=== PATIENT | female | born 1995 | race Caucasian/White ===

== ENCOUNTER 2017-03-13 09:18 | Emergency (ER) | payer BC, OTHER ==
[~2017-03-13] VITALS: Ht 168.9 cm; Wt 74.0 kg
[~2017-03-13 09:18] MED LIST: BCPILLS PO; LEVO137T3 PO; LEVO25TA5 PO
[2017-03-13 09:25] VITALS: Ht 168.9 cm; Wt 74.0 kg
[2017-03-13] MEDS ORDERED: ACETAMINOPHEN 500 MG TAB PO ONE (09:30)
[2017-03-13] MEDS ORDERED: SYN150 PO (09:37)
[2017-03-13] MEDS ORDERED: SERT50TA PO (09:37)
[2017-03-13 10:28] VITALS: TEMP 37.4
--- NOTE | 2017-03-13 10:30 | EMERGENCY ROOM VISIT NOTE ---
History Report prepared by Johnibmela: Sheryl Kinney Under the Supervision of: Dr. Ray Larose M.D. First contact with patient: 10:18 Chief Complaint: ILLNESS Stated Complaint: BACK PAIN,NIGHT SWEATS,JOINT PAIN,COLD SYMPTOMS History of Present Illness The patient is a 21 year old female who presents to the Emergency Room with complaints of cough and congestion beginning a week ago. The patient notes a fever, back pain, sore throat, frequent urinating, night sweats, body aches, and joint pain. The patient took ibuprofen with minimal relief. She denies any nausea, vomiting, abdominal pain, or chills. The patient had Grave's disease and has a history for a thyroidectomy. Her last menstrual cycle was a month ago. Source of History: patient Onset: week ago Modifying Factors (Relieving): tylenol Associated Symptoms: + fevers, + sorethroat, + cough, + back pain, + urinary symptoms, No nausea, No vomiting, No abdominal pain Review of Systems See HPI for pertinent positives and negatives. A total of ten systems were reviewed and were otherwise negative. Past Medical & Surgical Medical Problems: (1) Graves disease Surgical Problems: (1) History of total thyroidectomy Family History no pertinent family history stated. Social History Smoking Status: Never Smoker Housing Status: lives with roommate Occupation Status: [employer] student Current/Historical Medications Scheduled Control Pills ( Control Pills), 1 TAB PO DAILY Levothyroxine Sodium (Synthroid), 150 MCG PO QAM Sertraline (Zoloft), 50 MG PO DAILY Allergies Coded Allergies: No Known Allergies (Unverified , 03/13/17) Physical Exam Vital Signs Date Time Temp Pulse Resp B/P (MAP) Pulse Ox O2 Delivery O2 Flow Rate FiO2 03/13/17 13:40 76 16 137/70 99 03/13/17 13:27 76 16 137/70 99 Room Air 03/13/17 11:27 69 16 119/71 98 Room Air 03/13/17 10:28 37.4 03/13/17 09:25 38.8 120 17 141/87 98 Room Air Physical Exam GENERAL: Awake, alert, uncomfortable-appearing, in no acute distress HENT: Normocephalic, atraumatic. Dry MM. Mild injection, no edema to posterior pharynx. No tongue elevation or trismus. EYES: Normal conjunctiva. Sclera non-icteric. NECK: Supple. No nuchal rigidity. FROM. No JVD. RESPIRATORY: Clear to auscultation. CARDIAC: Regular rate, normal rhythm. Extremities warm and well perfused. Pulses equal. ABDOMEN: Soft, non-distended. No tenderness to palpation. No rebound or guarding. No masses. RECTAL: Deferred. MUSCULOSKELETAL: Chest examination reveals no tenderness. The back is symmetrical on inspection without obvious abnormality. There is no CVA tenderness to palpation. No joint edema. LOWER EXTREMITIES: Calves are equal size bilaterally and non-tender. No edema. No discoloration. NEURO: Normal sensorium. No sensory or motor deficits noted. SKIN: No rash or jaundice noted. Medical Decision & Procedures Laboratory Results 03/13/17 11:00 Red Blood Count 4.10, Mean Corpuscular Volume 92.4, Mean Corpuscular Hemoglobin 31.5, Mean Corpuscular Hemoglobin Concent 34.0, Mean Platelet Volume 9.9 03/13/17 11:00 Test 03/13/17 09:50 03/13/17 09:55 03/13/17 11:00 Urine Color YELLOW Urine Appearance CLEAR (CLEAR) Urine pH 5.5 (4.5-7.5) Urine Specific [place] 1.019 (1.000-1.030) Urine Protein NEG (NEG) Urine Glucose (UA) NEG (NEG) Urine Ketones 1+ (NEG) Urine Occult Blood NEG (NEG) Urine Nitrite NEG (NEG) Urine Bilirubin NEG (NEG) Urine Urobilinogen NEG (NEG) Urine Leukocyte Esterase NEG (NEG) Bedside Glucose 86 mg/dl (70-90) White Blood Count 3.12 K/uL (4.8-10.8) Red Blood Count 4.10 M/uL (4.2-5.4) Hemoglobin 12.9 g/dL (12.0-16.0) Hematocrit 37.9 % (37-47) Mean Corpuscular Volume 92.4 fL (80-100) Mean Corpuscular Hemoglobin 31.5 pg (25-34) Mean Corpuscular Hemoglobin Concent 34.0 g/dl (32-36) Platelet Count 129 K/uL (130-400) Mean Platelet Volume 9.9 fL (7.4-10.4) RDW Standard Deviation 43.7 fL (36.4-46.3) RDW Coefficient of Variation 12.9 % (11.5-14.5) Neutrophils % (Manual) 60.0 % Lymphocytes % (Manual) 15.7 % Variant Lymphocytes % (manual) 24.3 % Neutrophils # (Manual) 1.87 K/uL (1.4-6.5) Total Absolute Neutrophils 1.87 K/uL (1.4-6.5) Lymphocytes # (Manual) 0.49 K/uL (1.2-3.4) Absolute Variant Lymphocytes 0.76 K/uL Total Absolute Lymphocytes 1.25 K/uL (1.2-3.4) Red Blood Cell Morphology Unremarkable Anion Gap 9.0 mmol/L (3-11) Est Creatinine Clear Calc Drug Dose 124.4 ml/min Estimated GFR () 133.0 Estimated GFR (Non- 114.7 BUN/Creatinine Ratio 5.3 (10-20) Calcium Level 8.8 mg/dl (8.5-10.1) Thyroid Stimulating Hormone (TSH) 0.516 uIu/ml (0.300-4.500) Laboratory results reviewed by me Medications Administered Medications (Trade) Dose Ordered Sig/Cara Route Start Time Stop Time Status Last Admin Dose Admin Acetaminophen (Tylenol Tab) 1,000 mg STK-MED ONCE PO 03/13/17 09:30 03/13/17 09:31 DC 03/13/17 09:33 1,000 MG Sodium Chloride 1,000 ml @ 999 mls/hr Q1H1M STAT IV 03/13/17 10:37 03/13/17 11:37 DC 03/13/17 11:26 999 MLS/HR Ketorolac Tromethamine (Toradol Inj) 30 mg NOW STAT IV 03/13/17 10:37 03/13/17 10:41 DC 03/13/17 11:24 30 MG Sodium Chloride 1,000 ml @ 999 mls/hr Q1H1M STAT IV 03/13/17 10:37 03/13/17 11:37 DC 03/13/17 11:27 999 MLS/HR ED Course 0930: Tylenol Tab 1000 mg PO. 1025: The patient was evaluated in room B4B. A complete history and physical exam was performed. 1037: Sodium Chloride 1000 ml @ 999 mls/hr IV, Toradol Inj 30 mg IV, Sodium Chloride 1000 ml @ 999 mls/hr IV. 1311: I rechecked on the patient she is feeling better. 1335: I reevaluated the patient. Discussed results and discharge instructions: She verbalized understanding and agreement. The patient is ready for discharge. Medical Decision I reviewed the patient's past medical history, medications, and the nursing notes as described above.Differential diagnosis: URI, bronchitis, pharyngitis. Patient is a 21-year-old woman with past medical history of Graves' disease who presents emergency Department with a week of fatigue cough congestion and sore throat per history of present illness. On arrival the patient is uncomfortable but in no acute distress, afebrile with stable vital signs. Patient has mild injection in the posterior pharynx without edema, tongue elevation or trismus. No pain with tracheal manipulation. Lungs are clear. Mildly Tachycardic and thus labs done. Mildly decreased WBC consistent with viral etiology. Otherwise labs are unremarkable including negative UA. Patient feeling improved after IV fluids. Findings and plan for follow-up d/w patient. Patient agreeable and d/c'd per discharge instructions. Medication Reconcilliation Current Medication List: was personally reviewed by me Blood Pressure Screening Patient's blood pressure: Normal blood pressure Impression Primary Impression: Upper respiratory infection Scribe Attestation The scribe's documentation has been prepared under my direction and personally reviewed by me in its entirety. I confirm that the note above accurately reflects all work, treatment, procedures, and medical decision making performed by me. Departure Information Dispostion Home / Self-Care Referrals No Doctor, Assigned (PCP) Forms HOME CARE DOCUMENTATION FORM, IMPORTANT VISIT INFORMATION, WORK / SCHOOL INSTRUCTIONS Patient Instructions ED Upper Resp Infec No Abx Tx, My [facility] Additional Instructions Please follow up with your primary care physician in the next 1-3 days for reevaluation. Otherwise, your exam and lab results did not show signs of an emergent condition this time. Acetaminophen and ibuprofen for pain and fevers as needed. Drink plenty of fluids to ensure hydration. Return to the emergency department for worsening symptoms as described in the accompanying instructions.
[2017-03-13] MEDS ORDERED: KETOROLAC TROMETHAMINE 30 MG/ML VIAL IV STA (10:37)
[2017-03-13] MEDS ORDERED: SODIUM CHLORIDE 0.9% 1000ML 1,000 ML IV STA ×2 (10:37)
[2017-03-13 10:53] LABS: URINE APPEARANCE CLEAR (CLEAR); URINE BILIRUBIN NEG (NEG); URINE COLOR YELLOW; URINE NITRITE NEG (NEG); URINE PH 5.5 (4.5-7.5); URINE SPECIFIC GRAVITY 1.019 (1.000-1.030); UROBILINOGEN NEG (NEG); ZZUR CULT IF INDIC CLEAN CATCH NO
[2017-03-13 11:01] LABS: MANUAL MICROSCOPIC REQUIRED? NO; REVIEW REQ? NO
[2017-03-13 11:15] LABS: HEMATOCRIT 37.9 % (37-47); MEAN CELL VOLUME 92.4 fL (80-100); MEAN CORPUSCULAR HEMOGLOBIN 31.5 pg (25-34); MEAN PLATELET VOLUME 9.9 fL (7.4-10.4); PLATELET COUNT 129 K/uL (130-400); WHITE BLOOD COUNT 3.12 K/uL (4.8-10.8)
[2017-03-13 11:26] LABS: BUN/CREATININE RATIO 5.3 (10-20); CALCIUM 8.8 mg/dl (8.5-10.1); CREATININE 0.75 mg/dl (0.60-1.20); POTASSIUM 3.8 mmol/L (3.5-5.1)
[2017-03-13 11:37] LABS: THYROID STIMULATING HORMONE 0.516 uIu/ml (0.300-4.500)
[2017-03-13 12:02] LABS: COMPLETE YES; LYMPH ABS # 0.49 K/uL (1.2-3.4); LYMPHOCYTE % 15.7 %; VARIANT LYM ABS # 0.76 K/uL; VARIANT LYMPHOCYTE % 24.3 %
[2017-03-13 13:40] VITALS: BP 137/70; PULSE 76; O2SAT 99
== END 2017-03-13 13:40 | disposition home or self-care (01) ==
LOC: C.EDB 09:23
DX: J06.9 Acute upper respiratory infection, unspecified (principal); E05.00 Thyrotoxicosis with diffuse goiter without thyrotoxic crisis or storm